=== PATIENT | male | born 1970 | race Caucasian/White ===

== ENCOUNTER 2020-12-07 13:56 | Emergency (ER) | payer OTHER ==
[2020-12-07 14:26] VITALS: RESP 18
--- NOTE | 2020-12-07 14:34 | ED ---
Chest Pain HPI - General Chief Complaint: Chest Pain Stated Complaint: chest pain Time Seen by Provider: 12/07/20 14:07 Source: patient, EMS, RN notes reviewed Mode of arrival: EMS Limitations: no limitations - History of Present Illness Initial Comments: This is a 50-year-old male history of hypertension and Dong's disease states he had chest pain today after drinking a diet Mountain Dew. He states he had probably just the past states his mid lower sternal/epigastric was a discomfort lasted approximately 20 seconds and then went away. He states this happened before when he would drink Mountain Dew. He does have a history of reflux also. It feels somewhat different today. No family history no history of any heart disease or lung disease he is nonsmoker does not drink alcohol. Currently he is pain-free. Pain was described as a muscle spasm-like discomfort 7/10 severity. MD Complaint: chest pain - Related Data Home Medications Medication Instructions Recorded Confirmed Doxylamine Succinate [Unisom] 25 mg PO HS 12/07/20 12/07/20 Ibuprofen [Motrin Ib] 600 mg PO Q8H PRN 12/07/20 12/07/20 Allergies Allergy/AdvReac Type Severity Reaction Status Date / Time hydrocodone [From Vicodin] AdvReac Itching Verified 12/07/20 15:02 wheat AdvReac Nausea & Verified 12/07/20 15:02 Vomiting & Diarrhea Review of Systems ROS Statement: Those systems with pertinent positive or pertinent negative responses have been documented in the HPI. ROS Other: All systems not noted in ROS Statement are negative. EKG Findings - EKG Results: EKG: interpreted by OLLIE, sinus rhythm (Normal sinus rhythm of 78. Interval 160 QRS duration 104 QT since QTC 392/446 nonspecific T-wave configuration) Past Medical History Past Medical History: Hypertension, Thyroid Disorder Additional Past Medical History / Comment(s): Hasimoto's History of Any Multi-Drug Resistant Organisms: None Reported Past Surgical History: Hernia Repair, Tonsillectomy Past Psychological History: Anxiety Smoking Status: Never smoker Past Alcohol Use History: None Reported Past Drug Use History: None Reported General Exam - General Exam Comments Initial Comments: This is a well-developed well-nourished awake alert oriented times 3 male Limitations: no limitations Course Vital Signs 12/07/20 14:03 Temperature 97.8 F Pulse Rate 83 Respiratory 18 Rate Blood Pressure 167/97 O2 Sat by Pulse 99 Oximetry Chest Pain MDM - MDM Imaging reviewed no acute findings. Patient's had no further episodes in the emergency department. The presentation is consistent with a esophageal spasm. Discharged he follow-up with the physician he is in the process of trying to acquire 1. Disposition Clinical Impression: Esophageal spasm Disposition: HOME SELF-CARE Condition: Good Instructions (If sedation given, give patient instructions): Esophageal Spasm (ED) Is patient prescribed a controlled substance at d/c from ED?: No Referrals: None,Stated [Primary Care Provider] - 1-2 days
[2020-12-07 14:47] LABS: Basophils % (A) 0 %; Eosinophils # (A) 0.3 k/uL (0-0.7); Eosinophils % (A) 3 %; HCT 47.7 % (39.0-53.0); HGB 16.2 gm/dL (13.0-17.5); Lymphocytes % (A) 26 %; MCH 32.1 pg (25.0-35.0); MCHC 34.1 g/dL (31.0-37.0); MCV 94.1 fL (80.0-100.0); Mean Platelet Volume 8.6; Monocytes # (A) 0.4 k/uL (0-1.0); Monocytes % (A) 5 %; Neutrophils # (A) 4.8 k/uL (1.3-7.7); Neutrophils % (A) 64 %; Platelet Count 199 k/uL (150-450); RBC 5.06 m/uL (4.30-5.90); RDW 12.7 % (11.5-15.5); WBC 7.6 k/uL (3.8-10.6)
--- NOTE | 2020-12-07 14:53 | XR ---
EXAMINATION TYPE: XR chest 2V DATE OF EXAM: 12/07/2020 COMPARISON: NONE HISTORY: Chest pain TECHNIQUE: Frontal and lateral views of the chest are obtained. FINDINGS: There is no focal air space opacity, pleural effusion, or pneumothorax seen. The cardiac silhouette size is within normal limits. There are overlying leads. Patient is rotated to the right. The osseous structures are intact. IMPRESSION: No acute cardiopulmonary process.
[2020-12-07 14:56] LABS: ALT 41 U/L (4-49); AST 38 U/L (17-59); African American GFR (CKD) >90 (>60 ml/min/1.73 sqM); Albumin 4.5 g/dL (3.5-5.0); Alkaline Phosphatase 84 U/L (38-126); Anion Gap 12 mmol/L; Blood Urea Nitrogen 16 mg/dL (9-20); Calcium 9.2 mg/dL (8.4-10.2); Carbon Dioxide 24 mmol/L (22-30); Chloride 103 mmol/L (98-107); Creatine Kinase 154 U/L (55-170); Glucose 85 mg/dL (74-99); Magnesium 1.8 mg/dL (1.6-2.3); Non-African American GFR(CKD) >90 (>60 ml/min/1.73 sqM); Potassium 4.1 mmol/L (3.5-5.1); Sodium 139 mmol/L (137-145); Total Bilirubin 0.7 mg/dL (0.2-1.3)
[2020-12-07 15:07] LABS: Partial Thromboplastin Time 26.2 sec (22.0-30.0); Prothrombin Time 10.4 sec (9.0-12.0)
[2020-12-07 15:51] VITALS: BP 160/98; PULSE 73; TEMP 98.7
== END 2020-12-07 15:50 | disposition home or self-care (01) ==
LOC: EC 13:56
DX: K22.4 Dyskinesia of esophagus (principal); Z79.899 Other long term (current) drug therapy; Z88.5 Allergy status to narcotic agent; Z91.018 Allergy to other foods
CPT/HCPCS: 36415; 71046; 80053; 82550; 83735; 84484; 85025; 85610; 85730; 93005; 99285

== ENCOUNTER 2022-05-18 17:15 | Emergency (ER) | payer BC, OTHER ==
[2022-05-18 20:32] VITALS: TEMP 97.9
[2022-05-18] MEDS ORDERED: SODIUM CHLORIDE 0.9% 500 ML 500 ML IV STA (21:04)
[2022-05-18 21:59] LABS: Basophils # (A) 0.1 k/uL (0-0.2); Basophils % (A) 1 %; Eosinophils # (A) 0.1 k/uL (0-0.7); Eosinophils % (A) 1 %; HCT 48.6 % (39.0-53.0); HGB 16.2 gm/dL (13.0-17.5); Lymphocytes # (A) 1.4 k/uL (1.0-4.8); Lymphocytes % (A) 13 %; MCH 32.4 pg (25.0-35.0); MCHC 33.4 g/dL (31.0-37.0); Mean Platelet Volume 8.6; Monocytes # (A) 0.5 k/uL (0-1.0); Monocytes % (A) 5 %; Neutrophils # (A) 8.5 k/uL (1.3-7.7); Neutrophils % (A) 79 %; Platelet Count 220 k/uL (150-450); RBC 5.01 m/uL (4.30-5.90); RDW 13.1 % (11.5-15.5); WBC 10.8 k/uL (3.8-10.6)
[2022-05-18 22:01] LABS: Appearance,Urine Clear (Clear); Bilirubin,Urine Negative (Negative); Blood,Urine Negative (Negative); Color,Urine Colorless; Glucose,Urine (UA) Negative (Negative); Ketones,Urine 1+ (Negative); Leukocyte Esterase,Urine Negative (Negative); Nitrite,Urine Negative (Negative); PH, Urine 6.5 (5.0-8.0); Protein,Urine Negative (Negative); Specific Gravity,Urine 1.006 (1.001-1.035); Urobilinogen,Urine <2.0 mg/dL (<2.0)
--- NOTE | 2022-05-18 22:33 | CT ---
EXAMINATION TYPE: CT brain wo con DATE OF EXAM: 05/18/2022 HISTORY: headaches, pt heard a "pop" in his head on the left side CT DLP: 1135.4 mGycm. Automated Exposure Control for Dose Reduction was Utilized. TECHNIQUE: CT scan of the head is performed without contrast. COMPARISON: None. FINDINGS: There is no acute intracranial hemorrhage or midline shift identified. There is mild diff use ventricular and sulcal prominence consistent with diffuse age-related cerebral atrophy. Barber-whit e matter differentiation is maintained. The globes are intact and the visualized sinuses are clear. Patchy cerumen in the deep right external auditory canal axial image 13 . IMPRESSION: No acute intracranial hemorrhage or midline shift.
[2022-05-18 23:01] LABS: ALT 31 U/L (4-49); AST 32 U/L (17-59); African American GFR (CKD) >90 (>60 ml/min/1.73 sqM); Albumin 4.6 g/dL (3.5-5.0); Alkaline Phosphatase 59 U/L (38-126); Anion Gap 13 mmol/L; Blood Urea Nitrogen 16 mg/dL (9-20); Calcium 9.8 mg/dL (8.4-10.2); Carbon Dioxide 23 mmol/L (22-30); Chloride 102 mmol/L (98-107); Glucose 89 mg/dL (74-99); Non-African American GFR(CKD) >90 (>60 ml/min/1.73 sqM); Potassium 3.9 mmol/L (3.5-5.1); Sodium 138 mmol/L (137-145); Total Bilirubin 0.7 mg/dL (0.2-1.3); Total Protein 6.9 g/dL (6.3-8.2)
--- NOTE | 2022-05-18 23:21 | ED ---
General Adult HPI - General Chief complaint: Headache Stated complaint: head injury Time Seen by Provider: 05/18/22 20:29 Source: patient, RN notes reviewed Mode of arrival: ambulatory Limitations: no limitations - History of Present Illness Initial comments: This is a 51 year old male who presents to the emergency department with complaints of headache and dizziness. States he became earlier this evening when he felt a "pop" on the left side of his head then developed a persistent dull headache that is localized to the top of his head. States he has had episodes of dizziness though none currently. No aggravating or alleviating factors. Did not take anything to treat his symptoms prior to arrival. No history of migraines/headaches. Denies fever, chills, vision changes, neck pain, chest pain, shortness of breath, difficulty breathing, abdominal pain, nausea, vomiting, diarrhea, lower extremity edema, or weakness. - Related Data Home Medications Medication Instructions Recorded Confirmed Doxylamine Succinate [Unisom] 25 mg PO HS 12/07/20 12/07/20 Ibuprofen [Motrin Ib] 600 mg PO Q8H PRN 12/07/20 12/07/20 Allergies Allergy/AdvReac Type Severity Reaction Status Date / Time hydrocodone [From Vicodin] AdvReac Itching Verified 05/18/22 17:58 wheat AdvReac Nausea & Verified 05/18/22 17:58 Vomiting & Diarrhea Review of Systems ROS Statement: Those systems with pertinent positive or pertinent negative responses have been documented in the HPI. ROS Other: All systems not noted in ROS Statement are negative. Past Medical History Past Medical History: Hypertension, Thyroid Disorder Additional Past Medical History / Comment(s): Hasimoto's History of Any Multi-Drug Resistant Organisms: None Reported Past Surgical History: Hernia Repair, Tonsillectomy Past Psychological History: Anxiety Smoking Status: Never smoker Past Alcohol Use History: None Reported Past Drug Use History: None Reported General Exam Limitations: no limitations General appearance: alert, in no apparent distress Head exam: Present: atraumatic, normocephalic, normal inspection Eye exam: Present: normal appearance, PERRL, EOMI. Absent: scleral icterus, conjunctival injection, periorbital swelling Neck exam: Present: normal inspection, full ROM. Absent: tenderness, meningismus, lymphadenopathy Respiratory exam: Present: normal lung sounds bilaterally. Absent: respiratory distress, wheezes, rales, rhonchi, stridor Cardiovascular Exam: Present: regular rate, normal rhythm, normal heart sounds. Absent: systolic murmur, diastolic murmur, rubs, gallop, clicks GI/Abdominal exam: Present: soft, normal bowel sounds. Absent: distended, tenderness, guarding, rebound, rigid Neurological exam: Present: alert, oriented X3, CN II-XII intact, normal gait, reflexes normal Expanded Patient oriented to: Present: person, place, time Speech: Present: fluid speech Cranial nerves: EOM's Intact: Normal, Nystagmus: Normal Cerebellar function: Finger to Nose: Normal, Romberg: Normal Motor strength exam: RUE: 5, LUE: 5, RLE: 5, LLE: 5 Eye Response: (4) open spontaneously Motor Response: (6) obeys commands Verbal Response: (5) oriented Jessy Total: 15 Psychiatric exam: Present: anxious Skin exam: Present: warm, dry, intact, normal color. Absent: rash Course Vital Signs 05/18/22 05/18/22 05/18/22 17:55 20:31 23:36 Temperature 98 F 97.9 F Pulse Rate 97 85 84 Respiratory 20 17 16 Rate Blood Pressure 151/90 139/97 137/78 O2 Sat by Pulse 99 98 96 Oximetry Medical Decision Making - Medical Decision Making This is a 51-year-old female who presents to the emergency department for evaluation of headache and dizziness. Upon exam, patient is well-appearing and in no acute distress. He is neurologically intact with no focal deficits. Patient denies history of headaches migraines. Given his age and accompanying symptoms, a CT of the brain was obtained showing no acute findings. EKG shows normal sinus rhythm with no ectopy. Laboratory studies were unremarkable. Patient is reassured by this and will follow-up with his PCP for a recheck as scheduled. Strict return parameters were discussed in detail. Patient verbalizes understanding and agrees with this plan. Attending: Ozzy. - Lab Data Result diagrams: 05/18/22 21:25 05/18/22 22:14 Lab Results 05/18/22 05/18/22 05/18/22 Range/Units 21:25 21:25 21:25 WBC 10.8 H (3.8-10.6) k/uL RBC 5.01 (4.30-5.90) m/uL Hgb 16.2 (13.0-17.5) gm/dL Hct 48.6 (39.0-53.0) % MCV 97.0 (80.0-100.0) fL MCH 32.4 (25.0-35.0) pg MCHC 33.4 (31.0-37.0) g/dL RDW 13.1 (11.5-15.5) % Plt Count 220 (150-450) k/uL MPV 8.6 Neutrophils % 79 % Lymphocytes % 13 % Monocytes % 5 % Eosinophils % 1 % Basophils % 1 % Neutrophils # 8.5 H (1.3-7.7) k/uL Lymphocytes # 1.4 (1.0-4.8) k/uL Monocytes # 0.5 (0-1.0) k/uL Eosinophils # 0.1 (0-0.7) k/uL Basophils # 0.1 (0-0.2) k/uL PT 11.0 (9.0-12.0) sec INR 1.0 (<1.2) Sodium (137-145) mmol/L Potassium (3.5-5.1) mmol/L Chloride (98-107) mmol/L Carbon Dioxide (22-30) mmol/L Anion Gap mmol/L BUN (9-20) mg/dL Creatinine (0.66-1.25) mg/dL Est GFR (CKD-EPI)AfAm (>60 ml/min/1.73 sqM) Est GFR (CKD-EPI)NonAf (>60 ml/min/1.73 sqM) Glucose (74-99) mg/dL Calcium (8.4-10.2) mg/dL Total Bilirubin (0.2-1.3) mg/dL AST (17-59) U/L ALT (4-49) U/L Alkaline Phosphatase (38-126) U/L Troponin I (0.000-0.034) ng/mL Total Protein (6.3-8.2) g/dL Albumin (3.5-5.0) g/dL Urine Color Colorless Urine Appearance Clear (Clear) Urine pH 6.5 (5.0-8.0) Ur Specific [place] 1.006 (1.001-1.035) Urine Protein Negative (Negative) Urine Glucose (UA) Negative (Negative) Urine Ketones 1+ H (Negative) Urine Blood Negative (Negative) Urine Nitrite Negative (Negative) Urine Bilirubin Negative (Negative) Urine Urobilinogen <2.0 (<2.0) mg/dL Ur Leukocyte Esterase Negative (Negative) 05/18/22 05/18/22 Range/Units 22:14 22:14 WBC (3.8-10.6) k/uL RBC (4.30-5.90) m/uL Hgb (13.0-17.5) gm/dL Hct (39.0-53.0) % MCV (80.0-100.0) fL MCH (25.0-35.0) pg MCHC (31.0-37.0) g/dL RDW (11.5-15.5) % Plt Count (150-450) k/uL MPV Neutrophils % % Lymphocytes % % Monocytes % % Eosinophils % % Basophils % % Neutrophils # (1.3-7.7) k/uL Lymphocytes # (1.0-4.8) k/uL Monocytes # (0-1.0) k/uL Eosinophils # (0-0.7) k/uL Basophils # (0-0.2) k/uL PT (9.0-12.0) sec INR (<1.2) Sodium 138 (137-145) mmol/L Potassium 3.9 (3.5-5.1) mmol/L Chloride 102 (98-107) mmol/L Carbon Dioxide 23 (22-30) mmol/L Anion Gap 13 mmol/L BUN 16 (9-20) mg/dL Creatinine 0.68 (0.66-1.25) mg/dL Est GFR (CKD-EPI)AfAm >90 (>60 ml/min/1.73 sqM) Est GFR (CKD-EPI)NonAf >90 (>60 ml/min/1.73 sqM) Glucose 89 (74-99) mg/dL Calcium 9.8 (8.4-10.2) mg/dL Total Bilirubin 0.7 (0.2-1.3) mg/dL AST 32 (17-59) U/L ALT 31 (4-49) U/L Alkaline Phosphatase 59 (38-126) U/L Troponin I <0.012 (0.000-0.034) ng/mL Total Protein 6.9 (6.3-8.2) g/dL Albumin 4.6 (3.5-5.0) g/dL Urine Color Urine Appearance (Clear) Urine pH (5.0-8.0) Ur Specific [place] (1.001-1.035) Urine Protein (Negative) Urine Glucose (UA) (Negative) Urine Ketones (Negative) Urine Blood (Negative) Urine Nitrite (Negative) Urine Bilirubin (Negative) Urine Urobilinogen (<2.0) mg/dL Ur Leukocyte Esterase (Negative) - EKG Data EKG shows normal: sinus rhythm Rate: normal EKG Comments: EKG was obtained at 2243 showing sinus rhythm. Ventricular rate 71, NV interval 121, QRS duration 106, QT/QTc 41/423. Interpretation normal ECG. - Radiology Data Radiology results: report reviewed, image reviewed CT of the brain was obtained. Report was reviewed in its entirety. Impression per Dr. Bonilla is no acute intracranial hemorrhage or midline shift. Disposition Clinical Impression: Headache, Dizziness Disposition: HOME SELF-CARE Condition: Stable Instructions (If sedation given, give patient instructions): Acute Headache (ED) Additional Instructions: Monitor and record the quality of your headaches to review with your PCP. Follow-up with your PCP for a recheck as scheduled. Return to the emergency department with any new, worsening, or concerning symptoms. Is patient prescribed a controlled substance at d/c from ED?: No Referrals: August Almaraz Jr, DO [Primary Care Provider] - 1-2 days Time of Disposition: 23:24
[2022-05-18 23:37] VITALS: BP 137/78; PULSE 84; RESP 16
== END 2022-05-18 23:46 | disposition home or self-care (01) ==
LOC: EC 17:15
DX: R51.9 Headache, unspecified (principal); R42 Dizziness and giddiness; I10 Essential (primary) hypertension; E07.9 Disorder of thyroid, unspecified; F41.9 Anxiety disorder, unspecified; Z88.5 Allergy status to narcotic agent; Z91.018 Allergy to other foods
CPT/HCPCS: 36415; 70450; 80053; 81003; 84484; 85025; 85610; 93005; 96360; 96361; 99284

== ENCOUNTER → 2022-08-17 | Outpatient (CLI) | payer BC ==
[2022-08-17 22:39] LABS: African American GFR (CKD) 114.3 (60.0-200.0); Albumin 4.7 g/dL (3.8-4.9); Albumin/Globulin Ratio 2.37 (1.60-3.17); Anion Gap 9.7 mmol/L (10.00-18.00); BUN/Creat Ratio 15.09 Ratio (12.00-20.00); Blood Urea Nitrogen 13.1 mg/dL (9.0-27.0); Calcium 9.6 mg/dL (8.7-10.3); Non-African American GFR(CKD) 98.6 (60.0-200.0); Potassium 3.6 mmol/L (3.5-5.5); Total Bilirubin 0.6 mg/dL (0.30-1.20); Total Protein 6.7 g/dL (6.2-8.2)
== END | disposition home or self-care (01) ==
LOC: LABWHC1 15:22
PROVIDERS: ATTEND Family Medicine
DX: R00.2 Palpitations (principal); R07.89 Other chest pain; R01.1 Cardiac murmur, unspecified
CPT/HCPCS: 36415; 80053; 83880; 84484; 93005